=== PATIENT | female | born 1990 | race Caucasian/White ===

== ENCOUNTER 2020-09-30 13:03 | Inpatient (IN) ==
[2020-10-02] MEDS ORDERED: OXYTOCIN/0.9 % SODIUM CHLORIDE 30 UNITS/500 ML BAG IV ONE ×2 (00:48→10:12)
[2020-10-02] MEDS ORDERED: ONDANSETRON 4 MG TAB.RAPDIS PO PRN (00:48)
[2020-10-02] MEDS ORDERED: DEXTROSE 5%-LACTATED RINGERS 1,000 ML IV PRN (00:48)
[2020-10-02] MEDS ORDERED: LIDOCAINE HCL 50 ML VIAL PERI PRN (00:48)
[2020-10-02] MEDS ORDERED: RINGER'S SOLUTION,LACTATED 1,000 ML IV ONE (00:48)
[2020-10-02] MEDS ORDERED: ACETAMINOPHEN 325 MG TABLET PO ONE (02:57)
--- NOTE | 2020-10-02 07:19 | HP ---
Chief Complaint - Chief Complaint Date of Service: 10/02/20 Time of Service: 07:09 Chief Complaint: induction of labor for post dates History of Present Illness: 30 yo at 40w6d admitted for indution of labor due to post dates. This complicated by anemia, ADD, obesity, post dates, h/o migraines, and h/o hemorrhage. Rh negative Rubella immune GBS negative Medical History (Last Reviewed 10/02/20 @ 07:13 by Xu Knutson DO) Body mass index (BMI) greater than or equal to 35 (Chronic) Hx of migraines (Chronic) History of hemorrhage (Chronic) Anemia Onset Date: 01/17/18 with Female infertility, unexplained Onset Date: ~03/09/17 Hemorrhagic condition Onset Date: 04/21/18 post hemorrhage Irregular menses Onset Date: ~03/09/17 Uterine atony Onset Date: ~04/21/18 ADD (attention deficit disorder) Onset Date: Unknown Arcuate uterus Onset Date: ~05/11/17 Fallopian tube disorder Onset Date: ~05/11/17 right fallopian tube blocked Obesity (BMI 35.0-39.9 without comorbidity) Onset Date: ~03/09/17 BMI 35.6, wt 104 kg PCOS (polycystic ovarian syndrome) Onset Date: ~05/11/17 suspected Surgical History: Surgical History (Last Reviewed 10/02/20 @ 07:13 by Xu Knutson DO) S/P wrist surgery Onset Date: Unknown cyst removed Family History: Family History (Last Reviewed 10/02/20 @ 07:13 by Xu Knutson DO) Mother Emphysema lung Grandfather Liver disease Kidney disease Grandmother Diabetes Father Alive and well Social History: (Last Reviewed 10/02/20 @ 07:13 by Xu Knutson DO) Social History: Marital status: current occupational status: employed current occupation: scale house attendent Highest level of school completed/degree received: some college, no degree Service: No Tobacco: Smoking Status: Former smoker Alcohol: alcohol intake: former details: very rarely, none since +UPT Substance Use: substance use type: does not use Dietary Habits: caffeine: Yes caffeine comment: daily Type: carbonated beverages Review Of Systems (GEN) - Review of Systems Generalized/Overall Review: Present: No Symptoms Reported EENTM: Present: No Symptoms Reported Respiratory: Present: No Symptoms Reported Cardiac: Present: No Symptoms Reported Abdominal: Present: Other - Contractions Genitourinary: Present: No Symptoms Reported Musculoskeletal: Present: No Symptoms Reported Neurological: Present: No Symptoms Reported Skin: Present: No Symptoms Reported Endocrine: Present: No Symptoms Reported Immunizations: IMMUNIZATION HX Immunizations Up to Date No History of Influenza Vaccine No Hx Pneumococcal Vaccination No Allergies/Adverse Reactions: Allergies Allergy/AdvReac Type Severity Reaction Status Date / Time No Known Allergies Allergy Verified 10/02/20 00:49 Home Medications: HOME MEDICATIONS cholecalciferol (vitamin D3) 125 mcg (5,000 unit) capsule 5,000 unit PO DAILY #30 cap 11/18/19 [Last Taken 10/01/20] prenat.vits,dustin,psq-obva-zxhaj 1 tab PO DAILY 02/25/20 [Last Taken 10/01/20] breast pump See Rx Instructions .ROUTE .MEDSUPPLY #1 ea 05/08/20 [Last Taken Unknown] ferrous sulfate 325 mg (65 mg iron) tablet 325 mg PO DAILY #30 tab 07/07/20 [Last Taken 10/01/20] Exam - Exam Vital Signs: Vital Signs - Last Taken Temp 35.4 C L 10/02/20 01:30 Pulse 89 10/02/20 01:30 Resp 18 10/02/20 01:30 BP 119/69 10/02/20 01:30 Pulse Ox 97 10/02/20 01:30 Constitutional: Present: Alert, Oriented x3, Cooperative, No distress ENT Exam: Present: hearing grossly normal Breasts: Present: Exam deferred Respiratory: Present: lungs clear, no respiratory distress Cardiovascular/Chest: Present: normal peripheral pulses, regular rate, rhythm, no edema Abdomen: Present: nontender, no rebound tenderness, other - Gravid /Rectal: Present: Other - Cervix 3-4/80/-2 Extremity: Present: no pedal edema, no calf tenderness Skin Exam: Present: normal color, warm/dry, no cyanosis Neurologic: Present: alert, normal mood/affect, oriented x 3 Appearance: Present: appropriate appearance, appropriate insight Eye contact: Present: cooperative, good eye contact Thoughts: Present: normal thought pattern, normal mood /affect Diagnostic Studies: Laboratory Results Blood Type O Negative 10/02/20 01:43 Antibody Screen Positive 10/02/20 01:43 Assessment/Plan - Assessment/Plan (1) Post-dates Assessment: Admit for induction of labor. Epidural and pitocin PRN. Problem: Acute Qualifiers: Post-term type: 40-42 weeks gestation Qualified Code(s): O48.0 - Post-term (2) ADD (attention deficit disorder) Problem: Chronic Qualifiers: Hyperactivity presence: absent Qualified Code(s): F98.8 - Other specified behavioral and emotional disorders with onset usually occurring in childhood and adolescence (3) Body mass index (BMI) greater than or equal to 35 Problem: Chronic (4) Hx of migraines Problem: Chronic (5) History of hemorrhage Problem: Chronic
--- NOTE | 2020-10-02 07:23 | PN ---
Progess Note - Interim Date: 10/02/20 Time: 07:19 Narrative: 10/02/20 07:19 Patient rating contractions as moderate Vital signs stable. FHT: 140 baseline, moderate [id number]-hm-[id number] variability, was having frequent late decelerations, after AROM with insertion of FSE and IUPC late decelerations res olved but now having moderate variable decelerations. Contractions q 2-3 min Cervix: 4-5/90/-2, AROM at 0642 - scant clear fluid Impression: Intrauterine at 40 6/7 weeks induction of labor for postdates Plan: Discussed tracing and condition with parents. Will make patient n.p.o. and continue with position changes and possible amnioinfusion if variables become more severe. Discussed potential for section if baby does not tolerate decelerations.
[2020-10-02] MEDS ORDERED: NALOXONE HCL 1 MG/1 ML SYRG IV PRN (07:28)
[2020-10-02] MEDS ORDERED: ONDANSETRON HCL/PF 2 MG/ML VIAL IV PRN (07:28)
[2020-10-02] MEDS ORDERED: BUPIVACAINE HCL/0.9 % NACL/PF 250 ML EP PRN (07:28)
[2020-10-02] MEDS ORDERED: fentaNYL CITRATE/PF 50 MCG/ML AMPUL IT SCH (07:30)
--- NOTE | 2020-10-02 08:35 | ANES ---
Post Anesthesia Discharge - Transfer of Care Transfer of Care handoff given to nurse: Yes - Anesthesia Post Op Note Anesthesia Post Op Note: Care transferred to OB RN
--- NOTE | 2020-10-02 08:35 | ANES ---
Anesthesia Pre Procedure Eval Vitals/Labs: Last Vital Signs Temp 35.4 C L 10/02/20 01:30 Pulse 89 10/02/20 01:30 Resp 18 10/02/20 01:30 BP 119/69 10/02/20 01:30 Pulse Ox 97 10/02/20 01:30 HOME MEDICATIONS cholecalciferol (vitamin D3) 125 mcg (5,000 unit) capsule 5,000 unit PO DAILY #30 cap 11/18/19 [Last Taken 10/01/20] prenat.vits,dustin,aqs-altk-ebsoi 1 tab PO DAILY 02/25/20 [Last Taken 10/01/20] breast pump See Rx Instructions .ROUTE .MEDSUPPLY #1 ea 05/08/20 [Last Taken Unknown] ferrous sulfate 325 mg (65 mg iron) tablet 325 mg PO DAILY #30 tab 07/07/20 [Last Taken 10/01/20] Allergies/Adverse Reactions: Allergies Allergy/AdvReac Type Severity Reaction Status Date / Time No Known Allergies Allergy Verified 10/02/20 00:49 - Planned Procedure Planned Procedure: medical induction Medication List Reviewed:: Yes Allergies Verified: Yes Medical History (Last Reviewed 10/02/20 @ 08:34 by Pipo Mccoy CRNA) Body mass index (BMI) greater than or equal to 35 (Chronic) Hx of migraines (Chronic) History of hemorrhage (Chronic) Anemia Onset Date: 01/17/18 with Female infertility, unexplained Onset Date: ~03/09/17 Hemorrhagic condition Onset Date: 04/21/18 post hemorrhage Irregular menses Onset Date: ~03/09/17 Uterine atony Onset Date: ~04/21/18 ADD (attention deficit disorder) Onset Date: Unknown Arcuate uterus Onset Date: ~05/11/17 Fallopian tube disorder Onset Date: ~05/11/17 right fallopian tube blocked Obesity (BMI 35.0-39.9 without comorbidity) Onset Date: ~03/09/17 BMI 35.6, wt 104 kg PCOS (polycystic ovarian syndrome) Onset Date: ~05/11/17 suspected Surgical History (Last Reviewed 10/02/20 @ 08:34 by Pipo Mccoy CRNA) S/P wrist surgery Onset Date: Unknown cyst removed Family History (Last Reviewed 10/02/20 @ 08:34 by Pipo Mccoy, HEALTH AND HUMAN PERFORMANCE PROFESSOR) Mother Emphysema lung Grandfather Liver disease Kidney disease Grandmother Diabetes Father Alive and well - Family Anesthesia History Family History:: no untoward family reactions to anesthesia - Airway/Neck/Teeth Within Normal Limits:: Yes Teeth Condition: intact Neck Exam: full range of motion Mallampatti Score: 2 Thyromental (T-M) distance: > 6 cm Mandibulo Hyoid distance: > 3 cm - Respiratory Respiratory Physical: lungs clear Smoking Status: Former smoker Sleep Apnea currently treated: No Sleep Apnea by current assessment: No - Cardiovascular Tolerate Activity: Good Heart Sounds: S1 & S2, Regular - Gastrointestinal NPO since: mn - Anesthesia Assessment and Plan ASA Class: PS, II, E Anesthesia Type Plan: Epidural Planned difficult intubation/equipment available: No
--- NOTE | 2020-10-02 08:35 | ANES ---
Post Anesthesia Assessment - Vital Signs Vitals: Last Vital Signs Temp 35.4 C L 10/02/20 01:30 Pulse 89 10/02/20 01:30 Resp 18 10/02/20 01:30 BP 119/69 10/02/20 01:30 Pulse Ox 97 10/02/20 01:30 Airway Patency: Normal - Mental Status Level Of Consciousness: Awake - Pain Level Pain Score: 2 - N/V Assessment Nausea/Vomiting Presence: None Dehydration:: No
--- NOTE | 2020-10-02 08:37 | ANES ---
Anesthesia Procedure Note Procedure Note: ANESTHESIA PROCEDURE NOTE Date of Procedure: 10/02/20 Time of procedure: 06 28. Performed by: Alvin Mccoy CRNA Reel Cutter: None. Preprocedure diagnosis: Active labor. Post procedure diagnosis: Same. Procedure: Insertion of labor epidural. Indications: The patient is a 30-year-old multigravida female in active labor requesting labor epidural for pain management. Findings: See below. Details of the procedure: The patient was placed in a sitting position. Back was prepped with DuraPrep. Patient was then draped in a sterile fashion. Lidocaine 1% was infiltrated to the skin and subcutaneous tissues at the level of the L3 4 interspace. The epidural space was identified using a 18-gauge Tuohy needle with nwic-wi-ogqxymbmbp technique. 20 mcg fentanyl was given intrathecally using a 27 ga. spinal needle. Epidural catheter was inserted without difficulty. Negative test dose was elicited using 5 mL of 1.5% preservative-free lidocaine plus epinephrine 1 200,000. The epidural catheter was then taped and secured in place. EBL: Minimal. Fluids: N/A. Specimen: N/A. Post procedure condition: The patient tolerated the procedure well. No complications were noted. Thank you for this consultation. [place] CRNA
[2020-10-02] MEDS ORDERED: HYDROCORTISONE 30 APPL TUBE TP PRN (10:12)
[2020-10-02] MEDS ORDERED: GLYCERIN/WITCH HAZEL LEAF 40 APPL BOX TP PRN (10:12)
[2020-10-02] MEDS ORDERED: BENZOCAINE/MENTHOL 81 SPRAY CAN TP PRN (10:12)
[2020-10-02] MEDS ORDERED: BISACODYL 10 MG SUPP.RECT RC PRN (10:12)
[2020-10-02] MEDS ORDERED: SENNOSIDES 8.6 MG TABLET PO PRN (10:12)
--- NOTE | 2020-10-02 10:15 | OR ---
Operative Report - Dictated Report Narrative: Spontaneous vaginal delivery of viable male at 0952 on 10/02/2020 with Apgars 8 and 9, weighing 4313 g in BISHNU position with tight nuchal cord x1. Cord clamping delayed approximately 1 minute Placenta delivered complete, intact, with three vessel cord Estimated blood loss: 150 mL Anesthesia: Epidural Lacerations: Superficial vaginal laceration (less than 1 cm) at the posterior fourchette with no repair needed History for History for Definition: * The number of deliveries resulting in a live the patient experienced prior to current hospitalization * The previous delivery of live twins or any live multiple gestation is considered one live event. *If primagravida or nulliparous is documented select zero for the number of previous live births. Live Events: Live Events: 1
[2020-10-02] MEDS: IBUPROFEN 800 MG TABLET PO PRN (17:12)
[2020-10-02] MEDS ORDERED: RHO(D) IMMUNE GLOBULIN 1,500 UNIT SYRINGE IM ONE (20:30)
[2020-10-02] MEDS: DOCUSATE SODIUM 100 MG CAPSULE PO SCH (20:34)
[2020-10-03] MEDS: IBUPROFEN 800 MG TABLET PO PRN ×4 (00:25→21:24)
[2020-10-03] MEDS: DOCUSATE SODIUM 100 MG CAPSULE PO SCH ×3 (07:46→21:24)
[2020-10-03] MEDS ORDERED: PRENATAL VITS96/IRON FUM/FOLIC 1 TAB TABLET ONE (07:47)
[2020-10-03] MEDS: PRENATAL VITS96/IRON FUM/FOLIC 1 TAB TABLET PO SCH ×2 (07:48→08:38)
[2020-10-03] MEDS: FERROUS SULFATE 325 MG TABLET PO SCH ×2 (07:48→08:38)
[2020-10-03] MEDS ORDERED: FERROUS SULFATE 325 MG TABLET ONE (07:48)
[2020-10-03] MEDS: CHOLECALCIFEROL 5,000 UNIT TABLET PO SCH (08:38)
--- NOTE | 2020-10-03 17:38 | PN ---
Subjective - Date and Time Seen Date: 10/03/20 Time: 17:37 Objective - Vitals Vitals: Last Vital Signs Temp 36.5 C 10/03/20 14:27 Pulse 77 10/03/20 14:27 Resp 16 10/03/20 14:27 BP 105/71 10/03/20 14:27 Pulse Ox 95 10/03/20 14:27 Patient denies complaints. Breast-feeding Lochia wnl abdomen - soft, nontender Uterus -firm, at umbilicus - 1 No calf tenderness Impression: day #1 - s/p spontaneous vaginal delivery. Plan: Continue routine care Assessment/Plan - Problems/Diagnosis (1) Post-dates Problem: Acute Qualifiers: Post-term type: 40-42 weeks gestation Qualified Code(s): O48.0 - Post-term (2) ADD (attention deficit disorder) Problem: Chronic Qualifiers: Hyperactivity presence: absent Qualified Code(s): F98.8 - Other specified behavioral and emotional disorders with onset usually occurring in childhood and adolescence (3) Body mass index (BMI) greater than or equal to 35 Problem: Chronic (4) Hx of migraines Problem: Chronic (5) History of hemorrhage Problem: Chronic
[2020-10-04] MEDS: oxyCODONE HCL/ACETAMINOPHEN 1 TAB TABLET PO PRN ×2 (06:36→12:46)
[2020-10-04 07:10] VITALS: BP 121/61
[2020-10-04] MEDS: FERROUS SULFATE 325 MG TABLET PO SCH (08:13)
[2020-10-04] MEDS: DOCUSATE SODIUM 100 MG CAPSULE PO SCH (08:13)
[2020-10-04] MEDS: PRENATAL VITS96/IRON FUM/FOLIC 1 TAB TABLET PO SCH (08:13)
--- NOTE | 2020-10-04 10:58 | PN ---
Subjective - Date and Time Seen Date: 10/04/20 Time: 10:56 Objective - Vitals Vitals: Last Vital Signs Temp 36.4 C 10/04/20 07:08 Pulse 62 10/04/20 07:08 Resp 18 10/04/20 07:08 BP 121/61 10/04/20 07:08 Pulse Ox 98 10/04/20 07:08 Patient denies complaints. Lochia wnl abdomen - soft, nontender Uterus -firm, at umbilicus - 2 No calf tenderness Impression: day #2 - s/p spontaneous vaginal delivery. Plan: Routine discharge instructions Assessment/Plan - Problems/Diagnosis (1) Post-dates Problem: Acute Qualifiers: Post-term type: 40-42 weeks gestation Qualified Code(s): O48.0 - Post-term (2) ADD (attention deficit disorder) Problem: Chronic Qualifiers: Hyperactivity presence: absent Qualified Code(s): F98.8 - Other specified behavioral and emotional disorders with onset usually occurring in childhood and adolescence (3) Body mass index (BMI) greater than or equal to 35 Problem: Chronic (4) Hx of migraines Problem: Chronic (5) History of hemorrhage Problem: Chronic
--- NOTE | 2020-10-04 11:04 | DS ---
OB Discharge Summary (1) Post-dates Status: Resolved Qualifiers: Post-term type: 40-42 weeks gestation Qualified Code(s): O48.0 - Post-term (2) ADD (attention deficit disorder) Status: Chronic Qualifiers: Hyperactivity presence: absent Qualified Code(s): F98.8 - Other specified behavioral and emotional disorders with onset usually occurring in childhood and adolescence (3) Body mass index (BMI) greater than or equal to 35 Status: Chronic (4) Hx of migraines Status: Chronic (5) History of hemorrhage Status: Chronic Delivery Date: 10/02/20 Delivery Time: 09:52 :: 2 Para:: 2 Gestational weeks:: 40 Gestational days:: 6 Intrapartum Procedures: Spontaneous Vaginal Delivery, Delivered, Anesthesia - Epidural /OP Complications: No Complications Discharge Diagnosis: Postterm Delivery, Rubella Immune - Discharge Information Date of Discharge: 10/04/20 Hospital Course: 30-year-old 2 para 1 admitted at 40 6/7 weeks for induction of labor due to postdates. Her delivery and course were relatively uncomplicated. Patient was very emotional on the evening of PPD#1 but has since improved. Discharge Location: Home Disposition: Home self-care Condition: Good Referrals: Misael Beltran DO [Primary Care Provider] - Activity on Discharge:: Activity as tolerated, Pelvic Rest Discharge Diet: General/regular food Additional Patient Instructions (free text): ZACK PLEASE CALL THE [facility] TUESDAY OCTOBER 06, 2020 FOR FOLLOW UP APPOINTMENT FOR 3-[address] BARRIOS. BE SURE TO EAT PLENTY OF FRUITS AND VEGETABLES AND DRINK PLENTY OF WATER. CALL THE [facility] WITH ANY QUESTIONS OR CONCERNS AT [phone]. YOU MAY CALL THE PLACE AT [phone] IF UNABLE TO REACH THE PLACE. JOSE ALBERTO WEIGHED 9# 8.1 OZ [place] [id number] AT . HE WEIGHED 9# 0.4 OZ [place] [id number] GM ON DISCHARGE. HIS BLOOD TYPE IS O+. HE PASSED HIS HEARING SCREEN, CHD, AND METABOLIC WAS DRAWN. DISCHARGE BILIRUBIN WAS 9.3. PLEASE CALL [facility] TUESDAY FOR APPOINTMENT Prescriptions (Any new or edited meds): Ibuprofen [Motrin] 200 - 800 mg PO Q6H PRN #100 tab PRN Reason: Pain Complete Home Medications List: Complete Home Medication List: cholecalciferol (vitamin D3) 125 mcg (5,000 unit) capsule 5,000 unit PO DAILY #30 cap 11/18/19 prenat.vits,dustin,tdq-qrpe-vhysb 1 tab PO DAILY 02/25/20 breast pump See Rx Instructions .ROUTE .MEDSUPPLY #1 ea 05/08/20 ferrous sulfate 325 mg (65 mg iron) tablet 325 mg PO DAILY #30 tab 07/07/20 Ibuprofen [Motrin] 200 - 800 mg PO Q6H PRN #100 tab 10/03/20 - Plan Discharge to:: Home Follow up in office in:: 3-4 weeks - Information Weight (Grams): 4,313 Infant Sex: Male Score 1 min: 8 Score 5 min: 9 Circumcision: No Complications: Multiple Late Decels, Multiple Variable Decels
[2020-10-04] MEDS: CHOLECALCIFEROL 5,000 UNIT TABLET PO SCH (12:46)
== END 2020-10-04 14:00 | disposition home or self-care (01) | DRG 807 ==
LOC: OB 10-02 00:32 → MS 10-03 12:39
PROVIDERS: ADMIT Obstetrics & Gynecology; ATTEND Obstetrics & Gynecology